=== PATIENT | female | born 1945 | race Caucasian/White ===

== ENCOUNTER → 2017-03-31 | Outpatient (CLI) | payer OTHER ==
[~2017-03-31] MED LIST: ASPI325T PO; ASTE137S5; ESTR.3 PO; FLUTI220I INH; IPRA17I INH; LOTE20TA3 PO; MONT10TA2 PO; PRAV20TA67 PO; SYNT88TA PO; TAB-TAB PO; VITA-83 OR; VITA400C70 PO; XOPEAER4 INH
--- NOTE | 2017-04-06 10:28 | RSPPFT ---
DATE OF PROCEDURE: 03/31/17 COMMENTS: Spirometry with FVC of 2.6, FEV1 of 1.8, FEV1/FVC ratio at 68%. Non-significant response to acutely inhaled bronchodilator noted. Slow vital capacity is 97% of predicted. TLC is 118%. Diffusion capacity is normal. IMPRESSION: 1. Moderately severe airways obstruction. 2. Non-significant response to acutely inhaled bronchodilator. 3. No evidence of airways restriction. 4. Normal diffusion capacity.
== END ==
LOC: PHRSP 09:26
PROVIDERS: ATTEND Internal Medicine Sleep Medicine
DX: R06.89 Other abnormalities of breathing (principal)
CPT/HCPCS: 36600; 82805; 94060; 94726; 94729